=== PATIENT | female | born 1975 | race Caucasian/White ===

== ENCOUNTER 2016-11-22 20:30 | Emergency (ER) | payer MEDICARE, OTHER ==
[~2016-11-22 20:30] MED LIST: ACET500CAP PO; ALBUTEROL; ALBUTEROL INHALER; AMB10 PO; AMIT25 PO; AMIT50 PO; ATEN25 PO; AUG875 PO; B121000P IM; BEPREVE OP; CIP5 PO; COMBIVENT INH; DOX25 PO; DURA100 TOP; DURA12 TOP; DURA50 TOP; DURA75 TOP; Dilaudid PO; ELMIRON 100 MG100 MG OR; ELMIRON 100 MG100 MG PO; ELMIRON100 MG PO; ERY-TAB250 MG PO; FLEX PO; FLEXERIL5 MG PO; FLONASE NAS; FOLIC PO; IBU800 PO; IMITREX100 MG PO; KLONO1 PO; LINZESS 290 M290 MCG PO; LYRICA150 MG PO; MACRODANTIN 10100 MG PO; MARI2.5 PO; MIRALAXPKT PO; MOMUD PO; NEUR600 PO; NEXIUM40 PO; OXYCOD PO; OXYCON10 PO; PENICILLN VK500 MG PO; PHEN50TAB PO; PR25 PO; PROAIR HFA INH; Proair Hfa; RANITIDINE300 MG PO; ROXICODONE15 MG PO; SINEQUAN 50 MG50 MG PO; TOPAMAX100 PO; TOPAMAX200 MG PO; TRANSSCOP TOP; Theragran M PO; VITAMIN D; VITAMIN D1000 UNI1 PO; VITC500 PO; XANAX1 MG PO; ZANAFLEX 4 MG TA4 MG PO; ZANTAC150 MG PO; ZOFRAN4 PO; ZOFRAN8 PO; ZYRTEC ALLGY10 MG PO
[2016-11-22 21:13] LABS: BASOPHILS 0.2 %; BASOPHILS ABSOLUTE 0.01 10/3/uL (0.0-0.16); EOSINOPHILS 3.8 %; EOSINOPHILS ABSOLUTE 0.23 10/3/uL (0.0-0.53); HEMOGLOBIN 12.4 g/dL (12.0-16.0); IMMATURE GRANULOCYTES 0.2 %; IMMATURE GRANULOCYTES ABSOLUTE 0.01 10/3/uL (0.0-0.11); LYMPHOCYTES 43.4 %; LYMPHOCYTES ABSOLUTE 2.62 10/3/uL (0.67-4.30); MANUAL DIFF NO %; MEAN CORPUS HGB CONC 34.4 g/dL (32.0-36.0); MEAN CORPUSCULAR HEMOGLOB 30.5 pg (26.0-34.0); MEAN CORPUSCULAR VOLUME 88.7 fL (80-100); MEAN PLATELET VOLUME 10.4 fL (9.2-13.0); MONOCYTES 4.6 %; MONOCYTES ABSOLUTE 0.28 10/3/uL (0.21-1.20); NEUTROPHILS 47.8 %; NEUTROPHILS ABSOLUTE 2.88 10/3/uL (2.02-8.40); PLATELET COUNT 119 10/3/uL (150-400); RBC DISTRIBUTION WIDTH 14.2 % (12.0-16.0); RED CELL COUNT 4.06 10/6/uL (4.0-5.6)
[2016-11-22 21:29] LABS: A/G RATIO 1.3 (0.7-1.9); ALBUMIN 3.5 G/DL (3.5-5.0); ALKALINE PHOSPHATASE 71 U/L (45-117); BUN (BLOOD UREA NITROGEN) 15 MG/DL (6-23); CALCIUM, SERUM 8.8 MG/DL (8.5-10.4); CHLORIDE, SERUM 114 MMOL/L (96-112); CO2 (CARBON DIOXIDE) 24 MMOL/L (24-34); CREATININE 0.75 MG/DL (0.55-1.02); GFR AFRICAN AMERICAN 113 ML/MIN (>=60); GFR NON AFRICAN AMERICAN 98 ML/MIN (>=60); GLOBULIN 2.8 G/DL (2.5-4.1); GLUCOSE, SERUM 89 MG/DL (60-99); POTASSIUM, SERUM 3.8 MMOL/L (3.5-5.3); SGOT(AST) 8 U/L (5-40); SGPT(ALT) 12 U/L (5-65); SODIUM, SERUM 146 MMOL/L (135-148); TOTAL BILIRUBIN 0.1 MG/DL (0-1.2); TOTAL PROTEIN 6.3 G/DL (6.0-8.5)
[2016-11-22 22:01] LABS: ASCORBIC ACID (UR NOT ORDER) NEG (NEG); BILIRUBIN, URINE NEGATIVE (NEG); ER URINALYSIS TAT 0 Hrs 21 Mins; KETONE, URINE NEGATIVE (NEG); LEUKOCYTE ESTERASE(NOT OR TRACE (NEG); NITRITE (URINE) NEG (NEG); WBC (NOT ORDERED) (RFLEX) 3 (0-5)
[2016-11-23 02:12] LABS: AMPHETAMINES (NOT ORD) NEG (NEG); BARBITURATES (NOT ORDERED NEG (NEG); BENZODIAZEPINES (NOT ORD) NEG (NEG); CANNABINOIDS (THC) NEG (NEG); COCAINE (NOT ORDERED) NEG (NEG); OPIATES POS (NEG); PHENCYCLIDINE(PCP) NEG (NEG); TRICYCLICS POS (NEG)
[2016-12-27] MEDS ORDERED: KEPPRA500 PO (17:04)
[2017-04-13] MEDS ORDERED: ZANTAC300 MG PO (03:01)
[2017-04-13] MEDS ORDERED: PR25 PO (03:02)
[2017-04-13] MEDS ORDERED: NEXIUM40 PO (03:02)
[2017-04-13] MEDS ORDERED: BEVESPI AEROS10.7 GM INH (03:02)
[2017-04-13] MEDS ORDERED: ABILIFY10 PO (03:03)
[2017-04-13] MEDS ORDERED: Z-PAK PO (03:03)
[2017-04-13] MEDS ORDERED: EFFEXOR XR150 MG PO (03:04)
[2017-04-13] MEDS ORDERED: TOPAMAX100 PO (03:04)
[2017-04-13] MEDS ORDERED: MELATONIN10 M2 PO (03:04)
[2017-04-13] MEDS ORDERED: ROXICODONE15 MG PO (03:05)
[2017-04-13] MEDS ORDERED: X5 PO (03:06)
[2017-04-13] MEDS ORDERED: OXYCON10 PO (03:06)
[2017-04-13] MEDS ORDERED: B121000P IM (03:07)
[2017-04-13] MEDS ORDERED: MIRAPEX5 PO (03:07)
[2017-04-13] MEDS ORDERED: NEUR600 PO (03:07)
[2017-04-13] MEDS ORDERED: FLONASE NAS (03:08)
[2017-04-13] MEDS ORDERED: SINEQUAN 50 MG50 MG PO (03:08)
[2017-04-13] MEDS ORDERED: KEPPRA500 PO (03:09)
[2017-04-13] MEDS ORDERED: ZOFRAN8 PO (03:10)
[2017-04-13] MEDS ORDERED: ZOFRANODT8 SL (03:10)
[2017-04-13] MEDS ORDERED: ESTRACE1 MG PO (03:10)
[2017-04-13] MEDS ORDERED: ELMIRON 100 MG100 MG PO (03:11)
[2017-04-13] MEDS ORDERED: PROAIR HFA INH (03:11)
[2017-04-13] MEDS ORDERED: KLOR-CON M2020 MEQ PO (14:34)
[2017-04-13] MEDS ORDERED: ASAB PO (14:34)
== END 2016-11-23 03:00 | disposition home or self-care (01) ==
LOC: ER 20:30
PROVIDERS: Emergency Medicine
DX: K31.84 Gastroparesis (principal); J44.9 Chronic obstructive pulmonary disease, unspecified; J45.909 Unspecified asthma, uncomplicated; K21.9 Gastro-esophageal reflux disease without esophagitis; F32.9 Major depressive disorder, single episode, unspecified; F41.9 Anxiety disorder, unspecified; M19.90 Unspecified osteoarthritis, unspecified site; G47.30 Sleep apnea, unspecified; F17.210 Nicotine dependence, cigarettes, uncomplicated; Z90.49 Acquired absence of other specified parts of digestive tract; Z90.710 Acquired absence of both cervix and uterus; Z88.2 Allergy status to sulfonamides; Z88.8 Allergy status to other drugs, medicaments and biological substances; Z79.899 Other long term (current) drug therapy
CPT/HCPCS: 74177; 80053; 80305; 81001; 83690; 85025; 93005; 96374; 99284; J2405; Q9967

== ENCOUNTER 2016-12-28 11:28 | Inpatient (IN) | payer MEDICARE, OTHER ==
--- NOTE | ~2016-12-28 | EGD ---
EGD REPORT [facility] [address] [place]. [address] NAME: APRYL GO : [birth year] STATUS : REG [facility] [place] PAT#: [id number] AGE: 41 ADM/REG DATE : 12/28/16 MR#: [id number] REPORT SERV DATE: 12/28/16 DICTATED BY: GEOVANNY FUNES III DATE: 12/28/16 REPORT STATUS : Draft TRANSCRIBED BY: [facility] DATE: 12/28/16 Endoscopy Center Patient Name: Apryl Go Date of : 1975 Attending MD: GEOVANNY FUNES III, MD Procedure Date No Time: 12/28/2016 Procedure: Flexible Sigmoidoscopy Indications: Diarrhea of presumed infectious origin Medicines: Propofol per Anesthesia Complications: No immediate complications. Procedure: Pre-Anesthesia Assessment: - ASA Grade Assessment: II - A patient with mild systemic disease. After obtaining informed consent, the endoscope was passed under direct vision. Throughout the procedure, the patient's blood pressure, pulse, and oxygen saturations were monitored continuously. The GIF H190 [id number] was introduced through the anus and advanced to the left transverse colon. The flexible sigmoidoscopy was accomplished with ease. The patient tolerated the procedure well. The quality of the bowel preparation was adequate. Findings: A sessile polyp was found in the transverse colon. The polyp was 10 mm in size. The polyp was removed with a cold snare. Resection and retrieval were complete. Biopsies were taken with a cold forceps from the left colon for evaluation of microscopic colitis. Impression: - One 8 mm polyp in the transverse colon. Resected and retrieved. Recommendation: - Discharge patient to home. - Regular diet. - Continue present medications. - Await pathology results. Procedure Code(s): --- Professional --- 38487, Sigmoidoscopy, flexible; with removal of tumor(s), polyp(s), or other lesion(s) by snare technique 94976, 59, Sigmoidoscopy, flexible; with biopsy, single or multiple Diagnosis Code(s): --- Professional --- EGD REPORT [place] [address] [address]. [address] NAME: APRYL GO : [birth year] STATUS : [facility] [place] PAT#: [id number] AGE: 41 ADM/REG DATE : 12/28/16 MR#: [id number] REPORT SERV DATE: 12/28/16 DICTATED BY: GEOVANNY FUNES III DATE: 12/28/16 REPORT STATUS : Draft TRANSCRIBED BY: [employer] DATE: 12/28/16 D12.3, Benign neoplasm of transverse colon R19.7, Diarrhea, unspecified CPT copyright 2013 [employer]. All rights reserved. The codes documented in this report are preliminary and upon leather fitter review may be revised to meet current compliance requirements. GEOVANNY FUNES III, MD 12/28/2016 1:15 PM This report has been signed electronically. Number of Addenda: 0 Note Initiated On: 12/28/2016 1:02 PM [facility] [id number]
--- NOTE | ~2016-12-28 | HP ---
History And Physical [place] [id number] [facility]. [address] NAME: APRYL GO : [birth year] STATUS : ADM Kristy PAT#: [id number] AGE: 41 ADM/REG DATE : 12/28/16 MR#: [id number] REPORT SERV DATE: 12/29/16 DICTATED BY: SHRADDHA DOHERTY DATE: 12/29/16 REPORT STATUS : Draft TRANSCRIBED BY: MODL DATE: 12/29/16 DATE OF ADMISSION: 12/28/2016 REASON FOR ADMISSION: Intractable vomiting and gastroparesis. HISTORY OF PRESENT ILLNESS: Ms. Apryl Go is a 41-year-old female with history of chronic pain syndrome with multiple painful syndromes including gastroparesis, sphincter of Oddi dysfunction, interstitial cystitis, endometriosis and seizure disorder. Presented to the GI Clinic today with abdominal pain, nausea, vomiting. She underwent an EGD, which revealed esophageal moniliasis as well as gastritis. A colonoscopy was done also, which was unremarkable, except for a single polyp. The patient said this particular episode began four days ago, which she has been having issues for years. She has lost 100 pounds over the last five years and weighs about 90 pounds now. She has had significant vomiting, minimal fluid intake, ongoing loose stool with inability to tolerate her medications including her pain meds. The patient has low back pain, pelvic pain, and pain under her right rib cage, all this is pre-existing. Her stool is without blood, pus, or mucus. There is no coffee- grounds emesis or hematemesis. No fever, but she has had some chills and generalized weakness, but no specific weakness. She has noted that she has had exhaustive workup many times including a negative CT, 11/23. She has had a recent episode of Raynaud syndrome. REVIEW OF SYSTEMS: Negative. PAST MEDICAL HISTORY: As mentioned above. 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 She had a cholecystectomy, hysterectomy, oophorectomy, and the aforementioned problems. Also had a sphincterotomy in the past. MEDICATIONS: Include Xanax, Elavil, Flexeril, Marinol, Flonase, Linzess, Nexium, , Lyrica, Topamax, oxycodone. We were reported that she had very high dose oxycodone, but pharmacy revealed that she had a lower dose more recently. ALLERGIES: BENTYL, SULFA, TORADOL, AND REGLAN. FAMILY HISTORY: Positive for cancer. SOCIAL HISTORY: The patient is a smoker. PHYSICAL EXAMINATION: VITAL SIGNS: On presentation, blood pressure 102/55, pulse of 73, respirations 16, afebrile. GENERAL: Awake, alert, oriented x3, in no apparent distress. HEENT: Pupils are equal and reactive to light. Extraocular movements are intact. No cranial nerve deficits. Dry mucous membranes. Normal oropharynx. NECK: Revealed no jugular venous distention, carotid bruit, lymphadenopathy, or goiter. CARDIAC: Regular rate and rhythm. No murmurs, gallops, or rubs. LUNGS: Clear to auscultation bilaterally. Good excursion. History And Physical [address] [address] NAME: APRYL GO : [birth year] STATUS : ADM Kristy PAT#: [id number] AGE: 41 ADM/REG DATE : 12/28/16 MR#: [id number] REPORT SERV DATE: 12/29/16 DICTATED BY: SHRADDHA DOHERTY DATE: 12/29/16 REPORT STATUS : Draft TRANSCRIBED BY: ARLETTE DATE: 12/29/16 ABDOMEN: , but diffuse moderate tenderness in all beebe. No organomegaly. EXTREMITIES: No cyanosis, clubbing, or edema. Good pulses, but diminished capillary refill. Frail body habitus. SKIN: Warm and dry. PSYCHIATRIC: She is appropriate. LABORATORY EVALUATION: Sodium 143, potassium 3.1, chloride 112, bicarb 25, BUN 9, creatinine 0.8, glucose 120. ASSESSMENT AND PLAN: 1. Gastroparesis with nausea, vomiting, and dehydration. No prior history of diabetes. IV fluids. Symptom control. Resuming Marinol, we will try to see if we can get this preauthorized through her insurance as she has had better effects from this in the past. We will use percutaneous and injectable opiates for now until she can tolerate p.o. 2. Seizure disorder. The patient appears to be stable on her current regimen. We will continue this. CARITO/ARLETTE Shraddha Doherty M.D. / [id number] CC: Qian Urbina III, M.D.
--- NOTE | ~2016-12-28 | DS ---
Discharge Summary [facility] [address] [facility] [place]. [address] NAME: PB BLOOM : 71 STATUS : DIS IN PAT#: [id number] AGE: 41 ADM/REG DATE : 12/30/16 MR#: [id number] REPORT SERV DATE: 01/08/17 DICTATED BY: DATE: REPORT STATUS : Draft TRANSCRIBED BY: MODL DATE: 01/06/17 ADMISSION DATE: 12/30/2016 DISCHARGE DATE: 01/06/2017 [facility]ENDING: Dr. Marquez August. CONSULTANTS: [facility]. DISCHARGE DIAGNOSES: 1. Gastroparesis-acute on chronic. 2. Ankita esophagitis-to complete oral Diflucan course as an outpatient. 3. Acute bronchitis-improved with azithromycin. 4. Chronic obstructive pulmonary disease with acute exacerbation due to acute bronchitis. 5. Tobacco dependence. 6. Relative adrenal insufficiency, suspect due to prior Megace or steroid treatments. Cortisol 1.5 with normal cortisol stim test. 7. Vitamin D deficiency, severe-started on oral replacement. 8. Chronic pain syndrome and narcotic dependence. 9. Weight loss and failure to thrive due to longstanding gastroparesis. 10.Interstitial cystitis. 11.Degenerative disk disease. 12.Severe protein-calorie malnutrition due to longstanding gastroparesis. 13.History of pancytopenia due to poor nutrition. IMAGING: PA and lateral chest x-ray on 01/03/2017 for fever and leukocytosis shows no acute infiltrates. PERTINENT LABS: Sodium values between 138 and 143, potassium values normal, creatinine normal between 0.65 and 0.8, blood glucose values between 97 and 104. Liver enzymes normal. Folate 5.9. B12 of 410. TSH 0.67, free T4 1.11. Prealbumin 13.5. Cortisol 5.2. White blood cell count ranging from 4.1 to 9.9, hemoglobin 11.2, platelets 100. Coagulation studies normal. Urinalysis negative. Blood cultures x2 negative. Stool for C diff negative. PROCEDURES: 1. Upper endoscopy by Dr. Yoni Seals on 12/28/2016 demonstrating non-severe Ankita esophagitis, hiatal hernia, erythematous mucosa in the stomach status post biopsy. 2. Flexible sigmoidoscopy by Dr. Yoni Seals on 12/28/2016 showing 8 mm polyp in the transverse colon, which was resected. BRIEF HISTORY: For full details, please see the previously dictated history of present illness by Dr. August on 12/26/2016. This is a 41-year-old white female with longstanding chronic pain syndrome, narcotic dependence, gastroparesis. She presented to the emergency Discharge Summary [address] [address] NAME: PB BLOOM : 71 STATUS : DIS IN PAT#: [id number] AGE: 41 ADM/REG DATE : 12/30/16 MR#: [id number] REPORT SERV DATE: 01/08/17 DICTATED BY: DATE: REPORT STATUS : Draft TRANSCRIBED BY: MODL DATE: 01/06/17 department on 12/28/2016 after an EGD and colonoscopy with chief complaints of abdominal pain, nausea, and vomiting. Her EGD earlier that day revealed esophageal Ankita and gastritis. Colonoscopy done that day was unremarkable except for a polyp. She was admitted to the Hospitalist Service for management of her gastroparesis exacerbation. HOSPITAL COURSE: For the gastroparesis, the patient was managed with IV fluids and symptom control. Marinol was restarted as she has found success with this medication in the past. However, prior authorization was not able to be obtained, and again was denied on appeal, as her insurance company restricts this medication to those with underlying malignancies or HIV. She was managed with scheduled Phenergan and Zofran. GI followed and did not feel that the patient required a G-J tube this admission. Though she has daily nausea, she was able to keep down adequate amounts of food and fluid, maintaining her own nutritional status and hydration status during the admission. She does have longstanding severe protein- calorie malnutrition and weight loss of greater than 100 pounds over the past five years, but this is not an acute issue for the patient. She was improving from a GI perspective, but developed fevers on 01/03/2017 and 01/04/2017. Blood cultures were negative, chest x-ray was negative, and urinalysis was negative, but the patient continued to complain of a cough, minimally productive of sputum, with some subjective increase in shortness of breath and wheezing. She was started on azithromycin for acute bronchitis, and her symptoms improved and fever resolved. Thus, she will complete an additional few days of azithromycin and an oral steroid taper as an outpatient. She does have a history of COPD and was managed with bronchodilators in the hospital and will resume her outpatient inhalers. She continues on Diflucan for esophageal Ankita with a planned 14-day total treatment course. Of note, she had a past random cortisol of 1.5 on a prior hospitalization. Cosyntropin stim test on that admission showed normal stim and normal adrenal response. Repeat random cortisol this admission was 5.2. It seems the patient may have some relative adrenal insufficiency, but does not seem highly symptomatic from this, unless, it is possibly contributing to weakness, weight loss, nausea and vomiting. She was managed with hydrocortisone in the hospital for a few days without significant improvement and will be discharged on prednisone for her COPD exacerbation. Due to chronically poor nutritional status, the patient also has a history of several vitamin deficiencies. Levels were checked, and B12 was normal on monthly injections. She was found to be severely vitamin D deficient with a level of 15 and was started on oral replacement. Minimal changes were made to her narcotic regimen during the hospitalization. She did require IV Dilaudid for a period of time, but this was discontinued through the course of this week and she was transitioned back to oral pain medications. She was counseled on the need to further decrease her narcotic usage in the outpatient setting, working with her pain management doctor at [facility], to avoid recurrent flares of gastroparesis. Discharge Summary [place] [id number] [place]. [address] NAME: PB BLOOM : 71 STATUS : DIS IN PAT#: [id number] AGE: 41 ADM/REG DATE : 12/30/16 MR#: [id number] REPORT SERV DATE: 01/08/17 DICTATED BY: DATE: REPORT STATUS : Draft TRANSCRIBED BY: MODL DATE: 01/06/17 On the day of discharge, the patient reported a sore on her tongue. This was examined and appeared to be a small tongue laceration at the tip with some associated erythema, but no evidence of oral thrush. However, given her smoking history, she is at risk for oral cancers, and if this lesion does not resolve within the next week, she is encouraged to see a dentist for further evaluation. Her tongue pain was responding to Magic mouthwash during the hospitalization. DISCHARGE DISPOSITION: The patient is being discharged to home, to follow up closely with primary care provider, Dr. Seals, and her pain management doctor. She needs to see Dr. Seals within two to three weeks regarding potential for repeat appeal on the Marinol as we were unsuccessful in obtaining Marinol for her this admission. Again, she should follow up with a dentist if the sore on her tongue is nonresolving after one week. DISCHARGE MEDICATIONS: Include: 1. Doxepin 50 mg p.o. q.h.s. 2. Zantac 300 mg p.o. q.h.s. 3. Azithromycin 500 mg p.o. q.6 p.m. through 01/08/2017, to complete five days. 4. Flonase one spray per nostril daily. 5. Gabapentin 600 mg p.o. q.h.s. 6. Keppra 1250 mg p.o. twice a day. 7. Diflucan 100 mg p.o. q.6 p.m. through 01/10/2017, to complete a 14-day course. 8. Zofran 8 mg p.o. twice a day. 9. Nexium 40 mg p.o. twice a day. 10.Elmiron 100 mg p.o. every eight hours. 11.Topamax 100 mg p.o. q.h.s. 12.Florastor 1 cap p.o. twice a day. 13.Roxicodone 15 mg p.o. four times a day. 14.OxyContin 10 mg p.o. every 12 hours. 15.ProAir HFA two puffs inhaled as needed. 16.Xanax 0.5 mg p.o. twice a day. 17.B12 injections monthly. 18.Phenergan 50 mg p.o. every four hours. 19.Bevespi inhaler two puffs inhaled twice a day. 20.Magic mouthwash-5 mL swish and spit every six hours as needed. 21.Vitamin D 5000 International Units p.o. daily. 22.Prednisone 20 mg p.o. daily for five days. Prescriptions were provided for Magic mouthwash, azithromycin, Diflucan, Elmiron, Topamax, Florastor, prednisone, and vitamin D. Thirty five minutes was spent in completion of the discharge. DICTATED BY: Genaro Torres M.D. AKS/ARLETTE Discharge Summary [address] [place]. [address] NAME: PB BLOOM : 71 STATUS : DIS IN PAT#: [id number] AGE: 41 ADM/REG DATE : 12/30/16 MR#: [id number] REPORT SERV DATE: 01/08/17 DICTATED BY: DATE: REPORT STATUS : Draft TRANSCRIBED BY: ARLETTE DATE: 01/06/17 Genaro Torres M.D. / [id number] CC: Qian Smith III, M.D. [facility]
--- NOTE | ~2016-12-28 | IDS ---
Interim Discharge Summary [facility] [address] [place]. [address] NAME: PB BLOOM : 71 STATUS : ADM IN [facility]#: [id number] AGE: 41 ADM/REG DATE : 12/30/16 MR#: [id number] REPORT SERV DATE: 01/02/17 DICTATED BY: SHRADDHA DOHERTY DATE: 01/01/17 REPORT STATUS : Draft TRANSCRIBED BY: ARLETTE DATE: 01/01/17 ADMISSION DATE: 12/30/2016 DISCHARGE DATE: DATE OF SUMMARY: 01/01/2017. PRINCIPAL DIAGNOSIS: Intractable vomiting secondary to gastroparesis. SECONDARY DIAGNOSES: Chronic pain syndrome, depression, severe weight loss, esophageal candidiasis, dehydrations. HISTORY OF PRESENT ILLNESS: Please see my dictation 12/28/2016. HOSPITAL COURSE: Admitted with intractable vomiting associated with weight loss associated with gastroparesis. The patient received pain medicines, analgesics but simply unable to advance her diet despite Marinol, addition of Remeron. She was seen by Dr. Seals and the discussion at this time was whether or not GJ placement would be necessary given her profound malnutrition and concern for the fact that she has lost over 100 pounds. In the meantime, preauthorization of Marinol was underway with expected approval of that medication anyway tomorrow. CARITO/ARLETTE Shraddha Doherty M.D. / [id number] CC: Qian Urbina III, M.D.
--- NOTE | ~2016-12-28 | EGD ---
EGD REPORT [facility] [address] [place]. [address] NAME: APRYL GO : 71 STATUS : REG [facility] [place] [facility] PAT#: [id number] AGE: 41 ADM/REG DATE : 12/28/16 MR#: [id number] REPORT SERV DATE: 12/28/16 DICTATED BY: GEOVANNY FUNES III DATE: 12/28/16 REPORT STATUS : Draft [facility]ANS[facility]ED BY: [facility] DATE: 12/28/16 Endoscopy Center Patient Name: Apryl Go Date of : 1975 Attending MD: GEOVANNY FUNES III, MD Procedure Date No Time: 12/28/2016 Procedure: Upper GI endoscopy Indications: Dysphagia Medicines: Propofol per Anesthesia Complications: No immediate complications. Procedure: Pre-Anesthesia Assessment: - ASA Grade Assessment: III - A patient with severe systemic disease. - ASA Grade Assessment: III - A patient with severe systemic disease. The GIF H190 [id number] was introduced through the mouth, and advanced to the third part of duodenum. The upper GI endoscopy was accomplished with ease. The patient tolerated the procedure well. Findings: Non-severe esophagitis with no bleeding was found in the entire esophagus. A small hiatus hernia was present. Patchy moderately erythematous mucosa without bleeding was found in the entire examined stomach. Biopsies were taken with a cold forceps for histology. The examined duodenum was normal. Biopsies were taken with a cold forceps for evaluation of celiac disease. Impression: - Non-severe candidiasis esophagitis. - Hiatus hernia. - Erythematous mucosa in the stomach. Biopsied. - Normal examined duodenum. Biopsied. Recommendation: - Patient has a contact number available for emergencies. The signs and symptoms of potential delayed complications were discussed with the patient. Return to normal activities tomorrow. Written discharge instructions were provided to the patient. - Discharge patient to home. - Return to previous diet. - Follow an antireflux regimen. - Continue present medications. - Await pathology results. EGD REPORT [address] [address] NAME: APRYL GO : 71 STATUS : REG [facility] [place] PAT#: [id number] AGE: 41 ADM/REG DATE : 12/28/16 MR#: [id number] REPORT SERV DATE: 12/28/16 DICTATED BY: GEOVANNY FUNES III DATE: 12/28/16 REPORT STATUS : Draft TRANSCRIBED BY: [employer] DATE: 12/28/16 Procedure Code(s): --- Professional --- 36442, Esophagogastroduodenoscopy, flexible, transoral; with biopsy, single or multiple Diagnosis Code(s): --- Professional --- B37.81, Candidal esophagitis K44.9, Diaphragmatic hernia without obstruction or gangrene K31.9, Disease of stomach and duodenum, unspecified R13.10, Dysphagia, unspecified CPT copyright 2013 [employer]. All rights reserved. The codes documented in this report are preliminary and upon pst manager review may be revised to meet current compliance requirements. GEOVANNY FUNES III, MD 12/28/2016 1:03 PM This report has been signed electronically. Number of Addenda: 0 Note Initiated On: 12/28/2016 12:34 PM Scope Withdrawal Time 0 hours 0 minutes 0 seconds
[~2016-12-28 11:28] MED LIST changes: +KEPPRA500 PO
[2016-12-28] MEDS ORDERED: IBU800 PO (16:30)
[2016-12-28] MEDS ORDERED: BEVESPI INHALER INH (16:30)
[2016-12-28 20:49] LABS: BASOPHILS 0.2 %; BASOPHILS ABSOLUTE 0.01 10/3/uL (0.0-0.16); EOSINOPHILS 2.4 %; HEMATOCRIT 34.1 % (36.0-48.0); HEMOGLOBIN 11.4 g/dL (12.0-16.0); IMMATURE GRANULOCYTES 0.2 %; IMMATURE GRANULOCYTES ABSOLUTE 0.01 10/3/uL (0.0-0.11); LYMPHOCYTES ABSOLUTE 1.82 10/3/uL (0.67-4.30); MEAN CORPUS HGB CONC 33.4 g/dL (32.0-36.0); MEAN CORPUSCULAR HEMOGLOB 29.7 pg (26.0-34.0); MEAN CORPUSCULAR VOLUME 88.8 fL (80-100); MEAN PLATELET VOLUME 11.3 fL (9.2-13.0); MONOCYTES 5.8 %; MONOCYTES ABSOLUTE 0.24 10/3/uL (0.21-1.20); NEUTROPHILS 47.4 %; NEUTROPHILS ABSOLUTE 1.96 10/3/uL (2.02-8.40); PLATELET COUNT 87 10/3/uL (150-400); RBC DISTRIBUTION WIDTH 14.2 % (12.0-16.0); RED CELL COUNT 3.84 10/6/uL (4.0-5.6); WHITE BLOOD CELLS 4.1 10/3/uL (4.5-10.5)
[2016-12-28 20:50] LABS: MANUAL DIFF NO %
[2016-12-28 21:01] LABS: ALBUMIN 3.2 G/DL (3.5-5.0); CHLORIDE, SERUM 112 MMOL/L (96-112); CO2 (CARBON DIOXIDE) 25 MMOL/L (24-34); GFR AFRICAN AMERICAN 105 ML/MIN (>=60); GFR NON AFRICAN AMERICAN 90 ML/MIN (>=60); POTASSIUM, SERUM 3.1 MMOL/L (3.5-5.3); SGOT(AST) 10 U/L (5-40); SGPT(ALT) 12 U/L (5-65); SODIUM, SERUM 143 MMOL/L (135-148); TOTAL BILIRUBIN 0.3 MG/DL (0-1.2); TOTAL PROTEIN 5.4 G/DL (6.0-8.5)
[2016-12-28 21:02] LABS: A/G RATIO 1.5 (0.7-1.9); ALKALINE PHOSPHATASE 57 U/L (45-117); BUN (BLOOD UREA NITROGEN) 9 MG/DL (6-23); GLOBULIN 2.2 G/DL (2.5-4.1); GLUCOSE, SERUM 120 MG/DL (60-99); PHOSPHORUS, SERUM 2.9 MG/DL (2.5-4.5)
[2016-12-29 04:14] LABS: BUN (BLOOD UREA NITROGEN) 7 MG/DL (6-23); CALCIUM, SERUM 7.1 MG/DL (8.5-10.4); CHLORIDE, SERUM 114 MMOL/L (96-112); CO2 (CARBON DIOXIDE) 22 MMOL/L (24-34); CREATININE 0.65 MG/DL (0.55-1.02); GFR AFRICAN AMERICAN 126 ML/MIN (>=60); GFR NON AFRICAN AMERICAN 109 ML/MIN (>=60); POTASSIUM, SERUM 5.3 MMOL/L (3.5-5.3); SODIUM, SERUM 141 MMOL/L (135-148)
[2016-12-29 04:22] LABS: GLUCOSE, SERUM 409 MG/DL (60-99)
[2016-12-31 05:09] LABS: BUN (BLOOD UREA NITROGEN) 9 MG/DL (6-23); CALCIUM, SERUM 8.2 MG/DL (8.5-10.4); CHLORIDE, SERUM 113 MMOL/L (96-112); CO2 (CARBON DIOXIDE) 24 MMOL/L (24-34); CREATININE 0.79 MG/DL (0.55-1.02); GFR AFRICAN AMERICAN 106 ML/MIN (>=60); GFR NON AFRICAN AMERICAN 92 ML/MIN (>=60); GLUCOSE, SERUM 104 MG/DL (60-99); PHOSPHORUS, SERUM 3.5 MG/DL (2.5-4.5); POTASSIUM, SERUM 4.1 MMOL/L (3.5-5.3); SODIUM, SERUM 141 MMOL/L (135-148)
[2017-01-03 05:34] LABS: BASOPHILS 0.1 %; BASOPHILS ABSOLUTE 0.01 10/3/uL (0.0-0.16); EOSINOPHILS 1.4 %; EOSINOPHILS ABSOLUTE 0.17 10/3/uL (0.0-0.53); HEMOGLOBIN 13.1 g/dL (12.0-16.0); IMMATURE GRANULOCYTES 0.3 %; IMMATURE GRANULOCYTES ABSOLUTE 0.03 10/3/uL (0.0-0.11); LYMPHOCYTES 13.8 %; LYMPHOCYTES ABSOLUTE 1.62 10/3/uL (0.67-4.30); MEAN CORPUS HGB CONC 33.7 g/dL (32.0-36.0); MEAN CORPUSCULAR HEMOGLOB 30.4 pg (26.0-34.0); MEAN CORPUSCULAR VOLUME 90.3 fL (80-100); MEAN PLATELET VOLUME 12.1 fL (9.2-13.0); MONOCYTES 7.6 %; MONOCYTES ABSOLUTE 0.89 10/3/uL (0.21-1.20); NEUTROPHILS 76.8 %; NEUTROPHILS ABSOLUTE 9.02 10/3/uL (2.02-8.40); RBC DISTRIBUTION WIDTH 14.4 % (12.0-16.0); RED CELL COUNT 4.31 10/6/uL (4.0-5.6)
[2017-01-03 05:35] LABS: HEMATOCRIT 38.9 % (36.0-48.0); MANUAL DIFF NO %; PLATELET COUNT 115 10/3/uL (150-400); WHITE BLOOD CELLS 11.7 10/3/uL (4.5-10.5)
[2017-01-03 06:14] LABS: BUN (BLOOD UREA NITROGEN) 8 MG/DL (6-23); CALCIUM, SERUM 8.7 MG/DL (8.5-10.4); CHLORIDE, SERUM 108 MMOL/L (96-112); CO2 (CARBON DIOXIDE) 22 MMOL/L (24-34); CREATININE 0.62 MG/DL (0.55-1.02); FOLATE 5.9 NG/ML (>5.2); GFR AFRICAN AMERICAN 128 ML/MIN (>=60); GFR NON AFRICAN AMERICAN 110 ML/MIN (>=60); GLUCOSE, SERUM 97 MG/DL (60-99); POTASSIUM, SERUM 3.9 MMOL/L (3.5-5.3); SODIUM, SERUM 138 MMOL/L (135-148)
[2017-01-03 15:26] LABS: ASCORBIC ACID (UR NOT ORDER) NEG (NEG); BILIRUBIN, URINE NEGATIVE (NEG); KETONE, URINE NEGATIVE (NEG); LEUKOCYTE ESTERASE(NOT OR NEG (NEG); WBC (NOT ORDERED) (RFLEX) 1 (0-5)
[2017-01-04 05:21] LABS: BASOPHILS 0 %; EOSINOPHILS 0.9 %; EOSINOPHILS ABSOLUTE 0.09 10/3/uL (0.0-0.53); HEMOGLOBIN 11.2 g/dL (12.0-16.0); IMMATURE GRANULOCYTES 0.3 %; IMMATURE GRANULOCYTES ABSOLUTE 0.03 10/3/uL (0.0-0.11); LYMPHOCYTES 13.7 %; LYMPHOCYTES ABSOLUTE 1.36 10/3/uL (0.67-4.30); MEAN CORPUS HGB CONC 33.3 g/dL (32.0-36.0); MEAN CORPUSCULAR HEMOGLOB 29.9 pg (26.0-34.0); MEAN CORPUSCULAR VOLUME 89.6 fL (80-100); MEAN PLATELET VOLUME 10.9 fL (9.2-13.0); MONOCYTES 7.1 %; NEUTROPHILS ABSOLUTE 7.72 10/3/uL (2.02-8.40); PLATELET COUNT 100 10/3/uL (150-400); RBC DISTRIBUTION WIDTH 14.4 % (12.0-16.0); RED CELL COUNT 3.75 10/6/uL (4.0-5.6); WHITE BLOOD CELLS 9.9 10/3/uL (4.5-10.5)
[2017-01-04 05:23] LABS: HEMATOCRIT 33.6 % (36.0-48.0); MANUAL DIFF NO %
[2017-01-04 06:20] LABS: BUN (BLOOD UREA NITROGEN) 10 MG/DL (6-23); CALCIUM, SERUM 8.7 MG/DL (8.5-10.4); CHLORIDE, SERUM 110 MMOL/L (96-112); CO2 (CARBON DIOXIDE) 24 MMOL/L (24-34); CREATININE 0.77 MG/DL (0.55-1.02); FREE T4 1.11 NG/DL (0.76-1.46); GFR AFRICAN AMERICAN 110 ML/MIN (>=60); GFR NON AFRICAN AMERICAN 95 ML/MIN (>=60); GLUCOSE, SERUM 101 MG/DL (60-99); POTASSIUM, SERUM 3.8 MMOL/L (3.5-5.3); SODIUM, SERUM 140 MMOL/L (135-148)
[2017-01-05 22:43] LABS: THIAMINE 7.1 nmol/L (()); THIAMINE MONOPHOSPHATE 3.9 nmol/L (())
[2017-01-06] MEDS ORDERED: ELMIRON 100 MG100 MG PO (11:50)
[2017-01-06] MEDS ORDERED: FLORASTOR250 MG PO (11:51)
[2017-01-06] MEDS ORDERED: ZITHROMAX500 MG PO (11:52)
[2017-01-06] MEDS ORDERED: FLUCON1 PO (11:52)
[2017-01-06] MEDS ORDERED: P20 PO (11:54)
[2017-01-06] MEDS ORDERED: MAGIC MOUTHWASH PO (11:55)
[2017-01-06] MEDS ORDERED: D 5000 PO (11:55)
[2017-04-13] MEDS ORDERED: ZANTAC300 MG PO (03:01)
[2017-04-13] MEDS ORDERED: BEVESPI AEROS10.7 GM INH (03:02)
[2017-04-13] MEDS ORDERED: NEXIUM40 PO (03:02)
[2017-04-13] MEDS ORDERED: PR25 PO (03:02)
[2017-04-13] MEDS ORDERED: Z-PAK PO (03:03)
[2017-04-13] MEDS ORDERED: ABILIFY10 PO (03:03)
[2017-04-13] MEDS ORDERED: MELATONIN10 M2 PO (03:04)
[2017-04-13] MEDS ORDERED: EFFEXOR XR150 MG PO (03:04)
[2017-04-13] MEDS ORDERED: TOPAMAX100 PO (03:04)
[2017-04-13] MEDS ORDERED: ROXICODONE15 MG PO (03:05)
[2017-04-13] MEDS ORDERED: X5 PO (03:06)
[2017-04-13] MEDS ORDERED: OXYCON10 PO (03:06)
[2017-04-13] MEDS ORDERED: MIRAPEX5 PO (03:07)
[2017-04-13] MEDS ORDERED: B121000P IM (03:07)
[2017-04-13] MEDS ORDERED: NEUR600 PO (03:07)
[2017-04-13] MEDS ORDERED: FLONASE NAS (03:08)
[2017-04-13] MEDS ORDERED: SINEQUAN 50 MG50 MG PO (03:08)
[2017-04-13] MEDS ORDERED: KEPPRA500 PO (03:09)
[2017-04-13] MEDS ORDERED: ZOFRANODT8 SL (03:10)
[2017-04-13] MEDS ORDERED: ESTRACE1 MG PO (03:10)
[2017-04-13] MEDS ORDERED: ZOFRAN8 PO (03:10)
[2017-04-13] MEDS ORDERED: PROAIR HFA INH (03:11)
[2017-04-13] MEDS ORDERED: ELMIRON 100 MG100 MG PO (03:11)
[2017-04-13] MEDS ORDERED: ASAB PO (14:34)
[2017-04-13] MEDS ORDERED: KLOR-CON M2020 MEQ PO (14:34)
== END 2017-01-06 14:23 | disposition home or self-care (01) | DRG 391 ==
LOC: DMU 11:28 → CDU1 15:21 → 4SO 12-30 21:37
PROVIDERS: Hospitalist; Internal Medicine; Internal Medicine Gastroenterology; Nurse Practitioner Family
PROC: 0DBL8ZX Excision of Transverse Colon, Via Natural or Artificial Opening Endoscopic, Diagnostic (ICD-10-PCS; 2016-12-28)
PROC: 0DBG8ZX Excision of Left Large Intestine, Via Natural or Artificial Opening Endoscopic, Diagnostic (ICD-10-PCS; 2016-12-28)
PROC: 0DB68ZX Excision of Stomach, Via Natural or Artificial Opening Endoscopic, Diagnostic (ICD-10-PCS; principal; 2016-12-28 12:30)
PROC: 0DB98ZX Excision of Duodenum, Via Natural or Artificial Opening Endoscopic, Diagnostic (ICD-10-PCS; 2016-12-28 12:30)
DX: K31.84 Gastroparesis (principal); E43 Unspecified severe protein-calorie malnutrition; B37.81 Candidal esophagitis; F11.20 Opioid dependence, uncomplicated; E27.40 Unspecified adrenocortical insufficiency; R13.10 Dysphagia, unspecified; Z68.1 Body mass index [BMI] 19.9 or less, adult; E86.0 Dehydration; G89.4 Chronic pain syndrome; G40.909 Epilepsy, unspecified, not intractable, without status epilepticus; Z86.010 Personal history of colon polyps; R53.1 Weakness; Z79.891 Long term (current) use of opiate analgesic; Z88.2 Allergy status to sulfonamides; Z88.8 Allergy status to other drugs, medicaments and biological substances; F17.220 Nicotine dependence, chewing tobacco, uncomplicated; J45.909 Unspecified asthma, uncomplicated; K52.9 Noninfective gastroenteritis and colitis, unspecified; F32.9 Major depressive disorder, single episode, unspecified; E55.9 Vitamin D deficiency, unspecified; M79.7 Fibromyalgia; R62.7 Adult failure to thrive; D72.829 Elevated white blood cell count, unspecified; T38.5X5A Adverse effect of other estrogens and progestogens, initial encounter; J20.9 Acute bronchitis, unspecified; K44.9 Diaphragmatic hernia without obstruction or gangrene; K31.9 Disease of stomach and duodenum, unspecified; D12.3 Benign neoplasm of transverse colon
CPT/HCPCS: 71020; 80048; 80053; 81001; 82306; 82533; 82607; 82746; 82962; 83735; 84100; 84132; 84145; 84425; 84439; 84443; 85025; 87040; 87493; 87493-59; 88305; 94640; A9270-GY; C9113; J0456; J1170; J1450; J2405; J2550; J3010